=== PATIENT | female | born 1980 | race American Indian/Alaskan Native ===

== ENCOUNTER 2021-07-13 12:15 | Emergency (ER) | payer SELFPAY ==
[2021-07-13 16:24] VITALS: BP 130/91
[2021-07-13] MEDS ORDERED: HYDROcodone/ACETAMINOPHEN 5-325 MG TAB PO ONE (17:12)
--- NOTE | 2021-07-13 17:58 | XRay Report ---
Right foot, 3 views HISTORY: Fall COMPARISON: None FINDINGS: There is an acute fracture involving the base of the second metatarsal. Lisfranc interval is not well profiled, though appears grossly intact. There is a suspected nondisplaced fracture involving the la teral base of the great toe proximal phalanx. No additional fracture. No joint malalignment. There is mild soft tissue swelling of the dorsum of the foot. IMPRESSION: 1. Acute fracture of the base of the second metatarsal and suspected nondisplaced fracture of the gre at toe proximal phalanx. 2. Lisfranc interval is not well profiled, though appears preserved. Given fracture location, recomme nd standing views of the foot, as Lisfranc injury cannot be excluded. Right ankle: 3 views HISTORY: Fall COMPARISON: None FINDINGS: Acute minimally displaced fracture of the lateral malleolus at the level of the syndesmosis. Syndesmo sis is intact. There is widening the medial ankle gutter with acutely displaced fracture of the poste rior malleolus of the distal tibia. No additional fracture. Soft tissue swelling of the ankle, greate st laterally. IMPRESSION: Acute fractures of the lateral malleolus and posterior malleolus of the distal tibia with widening of the medial ankle gutter. Signer Name: Bolivar Reeves MD Signed: 07/13/2021 5:53 PM Workstation Name: [id number]
--- NOTE | 2021-07-13 20:25 | Emergency Department Report ---
ED Lower Extremity HPI - General Chief Complaint: Extremity Injury, Lower Stated Complaint: RT FOOT INJURY Time Seen by Provider: 07/13/21 16:47 Source: patient Mode of arrival: Ambulatory Limitations: No Limitations - History of Present Illness Initial Comments: Patient is a 41-year-old female presents emergency room complaints of a right leg injury that occurred 2 nights ago. Patient states that she was getting into the car and was between the curb of the sidewalk in the car. He states that she tripped and fell in between the car door and the curb of the sidewalk. She states since then she has been having right foot and ankle pain. She states that she has not been ambulating secondary to pain. She states that she is also noticed some swelling. She denies ever injuring in the past. She denies any numbness or weakness. Past medical history of sarcoidosis and gout. No allergies to medications. - Related Data Previous Rx's Medication Instructions Recorded Last Taken Type Cyclobenzaprine [Flexeril] 10 mg PO QHS PRN #10 tablet 03/24/20 Unknown Rx Naproxen 500 mg PO Q12H PRN #12 tablet 03/24/20 Unknown Rx HYDROcodone/APAP 5-325 [[place] 1 each PO Q6HR PRN #12 tablet 07/13/21 Unknown Rx 5/325] Ibuprofen [Motrin 600 MG tab] 600 mg PO Q8H PRN #20 tablet 07/13/21 Unknown Rx Allergies Allergy/AdvReac Type Severity Reaction Status Date / Time No Known Allergies Allergy Unverified 03/04/20 15:28 ED Review of Systems ROS: Stated complaint: RT FOOT INJURY Other details as noted in HPI Comment: All other systems reviewed and negative ED Past Medical Hx - Past Medical History Previous Medical History?: Yes Additional medical history: SARCOIDOSIS, GOUT - Surgical History Past Surgical History?: No - Social History Smoking Status: Never Smoker - Medications Home Medications: Home Medications Medication Instructions Recorded Confirmed Last Taken Type Cyclobenzaprine [Flexeril] 10 mg PO QHS PRN #10 tablet 03/24/20 Unknown Rx Naproxen 500 mg PO Q12H PRN #12 tablet 03/24/20 Unknown Rx HYDROcodone/APAP 5-325 [[place] 1 each PO Q6HR PRN #12 tablet 07/13/21 Unknown Rx 5/325] Ibuprofen [Motrin 600 MG tab] 600 mg PO Q8H PRN #20 tablet 07/13/21 Unknown Rx ED Physical Exam - General Limitations: No Limitations General appearance: alert, in no apparent distress - Head Head exam: Present: atraumatic, normocephalic - Eye Eye exam: Present: normal appearance - ENT ENT exam: Present: mucous membranes moist - Extremities Exam Extremities exam: Present: other (ttp to the right foot and ankle, there is moderate edema present with a few small scratches, no laceration, decreased ROM secondary to pain, neurovascularly intact) - Neurological Exam Neurological exam: Present: alert, oriented X3 - Psychiatric Psychiatric exam: Present: normal affect, normal mood - Skin Skin exam: Present: warm, dry, intact ED Course Vital Signs 07/13/21 16:22 Temperature 98.4 F Pulse Rate 80 Respiratory 18 Rate Blood Pressure 130/91 O2 Sat by Pulse 99 Oximetry ED Lower Extremity MDM - Radiology Data Radiology results: report reviewed Ordering Physician: BRIANNA EDUARDO Date of Service: 07/13/21 Procedure(s): XR ankle 3+V RT Accession Number(s): [id number] cc: BRIANNA EDUARDO Fluoro Time In Minutes: Right foot, 3 views HISTORY: Fall COMPARISON: None FINDINGS: There is an acute fracture involving the base of the second metatarsal. Lisfranc interval is not well profiled, though appears grossly intact. There is a suspected nondisplaced fracture involving the lateral base of the great toe proximal phalanx. No additional fracture. No joint malalignment. There is mild soft tissue swelling of the dorsum of the foot. IMPRESSION: 1. Acute fracture of the base of the second metatarsal and suspected nondisplaced fracture of the great toe proximal phalanx. 2. Lisfranc interval is not well profiled, though appears preserved. Given fracture location, recommend standing views of the foot, as Lisfranc injury cannot be excluded. Ordering Physician: BRIANNA EDUARDO Date of Service: 07/13/21 Procedure(s): XR foot 3+V RT Accession Number(s): [id number] cc: BRIANNA EDUARDO Fluoro Time In Minutes: Right foot, 3 views HISTORY: Fall COMPARISON: None FINDINGS: There is an acute fracture involving the base of the second metatarsal. Lisfranc interval is not well profiled, though appears grossly intact. There is a suspected nondisplaced fracture involving the lateral base of the great toe proximal phalanx. No additional fracture. No joint malalignment. There is mild soft tissue swelling of the dorsum of the foot. IMPRESSION: 1. Acute fracture of the base of the second metatarsal and suspected nondisplaced fracture of the great toe proximal phalanx. 2. Lisfranc interval is not well profiled, though appears preserved. Given fracture location, recommend standing views of the foot, as Lisfranc injury cannot be excluded. Right ankle: 3 views HISTORY: Fall COMPARISON: None FINDINGS: Acute minimally displaced fracture of the lateral malleolus at the level of the syndesmosis. Syndesmosis is intact. There is widening the medial ankle gutter with acutely displaced fracture of the posterior malleolus of the distal tibia. No additional fracture. Soft tissue swelling of the ankle, greatest laterally. IMPRESSION: Acute fractures of the lateral malleolus and posterior malleolus of the distal tibia with widening of the medial ankle gutter. Signer Name: John Reeves MD Signed: 07/13/2021 5:53 PM Workstation Name: [id number] Transcribed By: XAVIER Dictated By: JOHN REEVES MD Electronically Authenticated By: JOHN REEVES MD Signed Date/Time: 07/13/211752 DD/ 47 TD/TT: Right ankle: 3 views HISTORY: Fall COMPARISON: None FINDINGS: Acute minimally displaced fracture of the lateral malleolus at the level of the syndesmosis. Syndesmosis is intact. There is widening the medial ankle gutter with acutely displaced fracture of the posterior malleolus of the distal tibia. No additional fracture. Soft tissue swelling of the ankle, greatest laterally. IMPRESSION: Acute fractures of the lateral malleolus and posterior malleolus of the distal tibia with widening of the medial ankle gutter. Signer Name: John Reeves MD Signed: 07/13/2021 5:53 PM Workstation Name: [id number] Transcribed By: XAVIER Dictated By: JOHN REEVES MD Electronically Authenticated By: JOHN REEVES MD Signed Date/Time: 07/13/211752 DD/ 47 TD/TT: Ordering Physician: BRIANNA EDUARDO Date of Service: 07/13/21 Procedure(s): CT lower extremity RT wo con Accession Number(s): [id number] cc: BRIANNA EDUARDO CT lower extremity RT wo con INDICATION: abnormal xr, r/o lisfranc. TECHNIQUE: All CT scans at this location are performed using the following dose modulation technique: Automated exposure control. CONTRAST: None. COMPARISON: Plain films earlier the same day. FINDINGS: Well aligned fractures are seen at the lateral and posterior malleoli. Fractures are also seen at the base of the first, second and third metatarsals which are well aligned. No additional bony injury is seen. Soft tissue swelling is present greater anteriorly and laterally. IMPRESSION: 1. Fractures involving the lateral and posterior malleoli with associated soft tissue injury. 2. Avulsion at the base of the first through third metatarsals compatible with Lisfranc type injury. Signer Name: Julito Pretty MD Signed: 07/13/2021 8:39 PM Workstation Name: [id number] Transcribed By: ES Dictated By: Julito Pretty MD Electronically Authenticated By: Julito Pretty MD Signed Date/Time: 07/13/212038 DD/ 35 TD/TT: - Medical Decision Making Patient is a 41-year-old female presents emergency room complaints of a right leg injury that occurred 2 nights ago. Patient states that she was getting into the car and was between the curb of the sidewalk in the car. He states that she tripped and fell in between the car door and the curb of the sidewalk. She states since then she has been having right foot and ankle pain. She states that she has not been ambulating secondary to pain. She states that she is also noticed some swelling. She denies ever injuring in the past. She denies any numbness or weakness. Past medical history of sarcoidosis and gout. No allergies to medications. Vitals are normal. On exam:ttp to the right foot and ankle, there is moderate edema present with a few small scratches, no laceration, decreased ROM secondary to pain, neurovascularly intact. XR right foot: 1. Acute fracture of the base of the second metatarsal and suspected nondisplaced fracture of the great toe proximal phalanx. 2. Lisfranc interval is not well profiled, though appears preserved. Given fracture location, recommend standing views of the foot, as Lisfranc injury cannot be excluded. XR right ankle: IMPRESSION: Acute fractures of the lateral malleolus and posterior malleolus of the distal tibia with widening of the medial ankle gutter. CT lower extremity 1. Fractures involving the lateral and posterior malleoli with associated soft tissue injury. 2. Avulsion at the base of the first through third metatarsals compatible with Lisfranc type injury. Patient given pain medication on the emergency department with improvement of her pain. Discussed case with Dr. Espino, ER attending who reviewed images and advised to splint pt and have her follow-up with orthopedics. Patient placed in [place] splint and given crutches by associate account manager remain neurovascularly intact. Discussed all findings with patient and the importance of following up with orthopedics. advised pt Please take medication as prescribed. Do not bear weight on the leg. Follow-up with orthopedic doctor. Return to emergency room for any new or worsening symptoms. Critical care attestation.: If time is entered above; I have spent that time in minutes in the direct care of this critically ill patient, excluding procedure time. ED Disposition Clinical Impression: Lisfranc fracture Lateral malleolar fracture Qualifiers: Encounter type: initial encounter Fracture type: closed Fracture alignment: displaced Laterality: right Qualified Code(s): S82.61XA - Displaced fracture of lateral malleolus of right fibula, initial encounter for closed fracture Fracture, posterior malleolus Qualifiers: Encounter type: initial encounter Fracture type: closed Laterality: right Qualified Code(s): S82.391A - Other fracture of lower end of right tibia, initial encounter for closed fracture Disposition: 01 HOME / SELF CARE / HOMELESS Is pt being admited?: No Does the pt Need Aspirin: No Condition: Stable Instructions: Lisfranc Injury, Ankle Fracture Additional Instructions: Please take medication as prescribed. Do not bear weight on the leg. Follow-up with orthopedic doctor. Return to emergency room for any new or worsening symptoms. Prescriptions: Ibuprofen [Motrin 600 MG tab] 600 mg PO Q8H PRN #20 tablet PRN Reason: Pain HYDROcodone/APAP 5-325 [[place] 5/325] 1 each PO Q6HR PRN #12 tablet PRN Reason: Pain , Severe (7-10) Referrals: LETY STEVENS MD [Staff Physician] - 3-5 Days [facility] [Provider Group] - 3-5 Days Time of Disposition: 21:21 Print Language: TAMAZIGHT
--- NOTE | 2021-07-13 20:44 | Cat Scan Report ---
CT lower extremity RT wo con INDICATION: abnormal xr, r/o lisfranc. TECHNIQUE: All CT scans at this location are performed using the following dose modulation technique: Automated exposure control. CONTRAST: None. COMPARISON: Plain films earlier the same day. FINDINGS: Well aligned fractures are seen at the lateral and posterior malleoli. Fractures are also s een at the base of the first, second and third metatarsals which are well aligned. No additional bony injury is seen. Soft tissue swelling is present greater anteriorly and laterally. IMPRESSION: 1. Fractures involving the lateral and posterior malleoli with associated soft tissue injury. 2. Avulsion at the base of the first through third metatarsals compatible with Lisfranc type injury. Signer Name: Julito Pretty MD Signed: 07/13/2021 8:39 PM Workstation Name: [id number]
== END 2021-07-14 00:30 | disposition home or self-care (01) ==
LOC: ED 12:15
DX: S82.61XA Displaced fracture of lateral malleolus of right fibula, initial encounter for closed fracture (principal); W22.8XXA Striking against or struck by other objects, initial encounter; Y93.89 Activity, other specified; Y92.89 Other specified places as the place of occurrence of the external cause; Y99.8 Other external cause status
CPT/HCPCS: 99284